=== PATIENT | female | born 1955 | race Caucasian/White ===

== ENCOUNTER 2016-05-31 10:40 | Day surgery (SDC) | payer OTHER ==
[~2016-05-31] VITALS: Ht 165.1 cm; Wt 88.4 kg
[~2016-05-31 10:40] MED LIST: BIFI4CAP PO; CHOL5000 PO; CYCL1DRO OP; ESCI20TA38 PO; KRIL1CAP21 PO; LORA1TAB PO; MULT-1073 PO; OMEP20CA11 PO; PROP120C2 PO; SIMV10TA4 PO; TOPI-31 PO; [UNRECOGNIZED DRUG - OTHER]
[2016-05-31] MEDS ORDERED: Propofol 10,000 mCg/mL 20 mL Inj ONE (10:41)
[2016-05-31] MEDS ORDERED: Lactated Ringer's 1,000 ML IV ONE (10:58)
[2016-05-31 11:02] VITALS: BP 147/81; PULSE 63; RESP 18; O2SAT 97
[2016-05-31] MEDS ORDERED: BUTA1CAP41 PO (11:13)
[2016-05-31] MEDS ORDERED: HYDR-3825 PO (11:13)
[2016-05-31] MEDS ORDERED: MetoCLOpramide 5 mg/mL 2 mL Inj IVPUSH PRN (11:25)
[2016-05-31] MEDS ORDERED: Ondansetron 2 mg/mL 2 mL Inj IVPUSH PRN (11:25)
[2016-05-31] MEDS ORDERED: Lactated Ringer's 1,000 ML IV SCH (11:25)
[2016-05-31 12:04] VITALS: BP 146/67; PULSE 60; RESP 16; O2SAT 93
[2016-05-31 12:14] VITALS: BP 152/80; PULSE 55; RESP 16; O2SAT 94
[2016-05-31 12:24] VITALS: BP 122/63; PULSE 62; RESP 16; O2SAT 96
--- NOTE | 2016-05-31 13:21 | ENDO ---
[address] [address] ENDOSCOPY PROCEDURE PATIENT: RENÉ CLINE : 1955 MR#: [id number] ADMIT: 05/31/2016 JOB ID: [id number] OPERATION: Esophagogastroduodenoscopy with biopsy and polypectomy, and colonoscopy with snare polypectomy. PREOPERATIVE DIAGNOSIS(ES): Gastroesophageal reflux disease and a history of colon polyps. POSTOPERATIVE DIAGNOSIS(ES): 1. An 8 mm polyp seen in the body of the stomach status post hot snare polypectomy. 2. Mild nonerosive gastritis. 3. Small internal hemorrhoids. 4. A 5 mm ascending colon polyp, removed by hot snare polypectomy. ANESTHESIA: Monitored anesthesia care. COMPLICATIONS: None. BLOOD LOSS: Minimal. DESCRIPTION OF PROCEDURE: After the risks and benefits were explained to the patient, informed consent was obtained. After anesthesia was administered, an upper endoscope was inserted into the mouth, intubating the esophagus, stomach, and second portion of duodenum, and the mucosa carefully examined. After the procedure was done, the scope was withdrawn and the procedure terminated. The colonoscope was then inserted from the rectum to the cecum and the mucosa was carefully examined. Prep of the patient was good. After the procedure was done, the scope was withdrawn and the procedure terminated. FINDINGS: Upon inspection of the esophagus, the esophagus was normal, without masses, ulcers, or lesions. The Z-line was located at 40 cm from the incisors. Upon entering the stomach, there was an 8 mm polyp seen with a stalk in the body of the stomach. This was removed by hot snare polypectomy. There was mild nonerosive gastritis that was seen. Retroflexion was normal. Duodenal bulb, 2nd portion. Biopsy taken. Antrum, body of the stomach, and distal esophagus. Upon inspection of the anus, no masses, hemorrhoids, ulcers, or fissures that were seen throughout the entire examination. There was a 5 mm ascending colon polyp removed by hot snare polypectomy. Retroflexion showed small internal hemorrhoids. IMPRESSION: 1. Small internal hemorrhoids. 2. A 5 mm ascending colon polyp, removed by hot snare polypectomy. 3. An 8 mm polyp seen in the body of the stomach, removed by hot snare polypectomy. 4. Mild nonerosive gastritis. RECOMMENDATION: Await pathology results. Repeat colonoscopy in five years for history of colon polyps.
--- NOTE | 2016-05-31 15:41 | PCM.HPANE ---
Patient Data Surgeon Admitting Provider: Attending Provider:Nabil Jara MD Primary Care Physician:Adelaide Morris DO Other Provider:Cristhian Lanier Anesthesia Reason for Visit Phx Colon Polyps, Gerd Ht/WT & BMI Body Mass Index Allergies Coded Allergies: No Known Allergies (Unverified , 05/31/16) Past Anesthesia History Anesthesia History: Denies:: Anesthesia Reactions Diabetes History Hx Diabetes?: No Medications Reported Medications Hydrocodone-Acetaminophen 7.5-325 mg 1 Each Tablet1 Tablet PO Q4H PRN For Pain Ref 0 05/31/16 Butalbital/Acetamin/Caff 50-300-40 mg 1 Each Capsule1 Capsule PO Q4H PRN Headache Ref 0 05/31/16 Omeprazole 20 Mg Capsule.dr20 Mg PO DAILY Ref 0 05/30/16 Cholecalciferol (Vitamin D3) (Vitamin D3)5,000 Unit Capsule5,000 Unit PO DAILY 12/15/15 Topiramate 100 Mg [id number] Mg PO BID Ref 0 12/15/15 Simvastatin 10 Mg Ocnvjd48 Mg PO HS Ref 0 12/15/15 Cyclosporine (Restasis)1 Each Droperette1 Each OP DAILY 12/15/15 Propranolol ER 120 Mg Cap.sa.77b909 Mg PO DAILY 12/15/15 Lorazepam 1 Mg Tablet0.5-1 Mg PO TID PRN For Anxiety Ref 0 12/15/15 Escitalopram Oxalate 20 Mg Jxwoyi17 Mg PO DAILY 30 Days Ref 0 12/15/15 Multivits-Min/FA/Lycopene/Lut (Centrum Silver Tablet)1 Each Tablet1 Each PO DAILY 12/15/15 Discontinued Reported Medications [phrenilin forte] 50/650 No Conflict Check1 Tab Q4H PRN migraine NTE 4 cap/ 24hrs 12/15/15 Krill/Om-3/Dha/Epa/Phospho/Ast (Megared [place]-3 Krill Oil Sfgl)300-90-24 Capsule1 Each PO DAILY 12/15/15 Bifidobacterium Infantis (Align)4 Mg Capsule4 Mg PO DAILY 12/15/15 History History of ENT Problems?: No Hx of Heart Problems?: Yes Cardiovascular History: Positive for:: Hypertension Denies:: AICD Pacemaker Hx of Respiratory Problem?: Yes Respiratory History: Positive for:: Use of C-PAP Machine (AKUA+ ) Denies:: Oxygen Administration Hx Neurologic Problems?: Yes Neurological History: Positive for:: Headaches (migraine hx) Hx of GI Problems?: No Hx of Problems?: Yes Genitourinary History: Positive for:: Kidney Stones (left kidney stone current admission problem) Female Hx: Denies:: Currently (hysterectomy) Hx Musculoskeletal Problems?: Yes Musculoskeletal History: Positive for:: Musculoskeletal Trauma (s/p ACL ) Denies:: Back Injury Hx of Psycho/Social Problems?: Yes Psycho Social History: Positive for:: Hx Depression Hx Surgeries?: Yes (hyst, RSO, appe, thyroid, ACL repair) Hx Any Other Health Problems?: Yes Other History: Positive for:: Thyroid Disease (hx of thyroidectomy) Denies:: Cancer Hx Diabetes: No Have You Smoked inLast 12 mo: No Stop/Bang Risk Assessment Category Category 1A: Patient has history of documented sleep apnea, and HAS NOT received any narcotic, sedative or anesthesia administration during this stay. Category 1B: Patient has history of documented sleep apnea, and HAS received any narcotic , sedative or anesthesia administration during this stay Category 2: Patient has SUSPECTED Obstructive Sleep Apnea, and HAS received any narcotic , sedative or anesthesia administration during this stay. Category 3: Patient has SUSPECTED Obstructive Sleep Apnea and HAS NOT received narcotic, sedative or anesthesia administration during this stay. Category 4: Outpatient in Procedural Areas with known sleep apnea or who screen positive for High Risk via the STOP/BANG questionnaire. Exam Exam General Appearance: Alert, Oriented X3, Cooperative, No Acute Distress HEENT/AIRWAY: MP 2 Lungs: Clear to Auscultation, Normal Air Movement Heart: Exam Unremarkable, Regular Rate/Rhythm, No Murmurs/Rubs/Gallops Plan Impression Patient chart reviewed, patient interviewed and anesthestic plan with risks, benefits, and alternatives discussed, and informed consent obtained. NPO Status: mn ASA Physical Status: ASA2 Mod Systemic Disease Anesthetic Plan: MAC Bene/Risks/Altern/Consents: Yes HP Complete Prior to Induction: Yes Simone Gayle MD May 31, 2016 07:29
--- NOTE | 2016-05-31 15:41 | PCM.ANEP1 ---
Post Anesthesia Phase 1 PACU Phase 1 Assessment Vital Signs Vital Signs Date Time Temp Pulse Resp B/P Pulse Ox O2 Delivery O2 Flow Rate FiO2 05/31/16 12:24 62 16 122/63 96 Room Air 05/31/16 12:14 55 16 152/80 94 Room Air 05/31/16 12:04 36.6 60 16 146/67 93 Room Air 05/31/16 11:02 37.2 63 18 147/81 97 Room Air Anesthetic Administered: MAC Level of Alertness: Awake, talking MATOS's with Equal Strength: Yes Pain: No Nausea or Vomiting: No Oxygen Delivery: Room Air Lungs: Clear to Auscultation, Normal Air Movement Dermatome Level: Full Sensation Simone Gayle MD May 31, 2016 15:41
--- NOTE | 2016-05-31 15:41 | PCM.ANEP2 ---
Post Anesthesia Evaluation ASA/CMS Post Anesthesia VS in Patient's Normal Range?: Yes Resp Stable; Airway Patent?: Yes CV Function & Hydration Stable: Yes Mental Status Recovered?: Yes Pain control Satisfactory?: Yes N/V Control Satisfactory?: Yes Simone Gayle MD May 31, 2016 15:41
--- NOTE | 2016-06-04 11:16 | PATH ---
SURGICAL PATHOLOGY Attending Physician:Nabil Jara MD CASE STATUS: Signed Out PATIENT NAME: RENÉ CLINE PID: [id number] : 1955 DATE COLLECTED:05/31/2016 00:00 SPECIMEN: 1: Gastric, Biopsy 2: Gastric, Biopsy 3: Esophagus, Biopsy 4: Stomach, Polyp, Biopsy 5: Colon, Biopsy CLINICAL HISTORY: 1). ANTRUM BIOPSY 2). GASTRIC BODY 3). DISTAL ESOPHAGUS 4). GASTRIC POLYP X1 5). ASCENDING POLYP X1 FINAL DIAGNOSIS: 1.ANTRUM BIOPSY: MUCOSAL HYPEREMIA WITHOUT ASSOCIATED SIGNIFICANT INFLAMMATION INVOLVING ANTRAL MUCOSA. Negative for evidence of Helicobacter. Negative for intestinal metaplasia. Negative for dysplasia and malignancy. 2.GASTRIC BODY BIOPSY: MILD CHRONIC GASTRITIS INVOLVING FUNDIC MUCOSA. Negative for evidence of Helicobacter. Negative for intestinal metaplasia. Negative for dysplasia and malignancy. 3.DISTAL ESOPHAGUS BIOPSY: SQUAMOUS MUCOSA AND GASTRIC CARDIA-TYPE MUCOSA NEGATIVE FOR SPECIALIZED METAPLASIA OF LORENZO' S-TYPE ESOPHAGUS. Negative for dysplasia and malignancy. Rare eosinophils present within squamous epithelium consistent with changes of chronic reflux. 4.GASTRIC POLYP: HYPERPLASTIC POLYP, NEGATIVE FOR ATYPIA. 5.ASCENDING COLON POLYP: TUBULAR ADENOMA INVOLVING SINGLE BIOPSY FRAGMENT. ICD10 CODE D12.2 GROSS DESCRIPTION: The specimen is received in five formalin filled containers labeled with the patient's name. 1). The specimen is sublabeled "antrum" and consists of 2 portions of tissue which aggregate to 0.3 x 0.3 x 0.2 CM. The specimen is entirely submitted in cassette 1A. 2). The specimen is sublabeled "gastric body" and consists of 2 portions of tissue which aggregate to 0.4 x 0.3 x 0.2 CM. The specimen is entirely submitted in cassette 2A. 3). The specimen is sublabeled "distal esophagus" and consists of 2 portions of tissue which aggregate to 0.3 x 0.3 x 0.2 CM. The specimen is entirely submitted in cassette 3A. 4). The specimen is sublabeled "gastric polyp" and consists of a 0.7 x 0.7 x 0.7 CM portion of tissue. The specimen is bisected and totally submitted in cassette 4A. 5). The specimen is sublabeled "ascending polyp" and consists of 3 portions of tissue which aggregate to 0.4 x 0.4 x 0.3 CM. The specimen is entirely submitted in cassette 5A. 06/01/2016 [facility] MICRO DESCRIPTION: See diagnosis. ICD-9 CODES: CPT CODES: 1: 69535 2: 13989 3: 18198 4: 37997 5: 33922 Electronically Signed Out Jimbo Mclaughlin MD [facility] Pathology [facility] [address], [place] [address] Technical component performed at [facility], [facility] [address], [place], [address]
== END 2016-05-31 23:59 | disposition home or self-care (01) ==
LOC: END 10:40
PROVIDERS: ATTEND Internal Medicine Gastroenterology
DX: Z12.11 Encounter for screening for malignant neoplasm of colon (principal); Z86.010 Personal history of colon polyps; D12.2 Benign neoplasm of ascending colon; K64.8 Other hemorrhoids; K21.9 Gastro-esophageal reflux disease without esophagitis; K31.7 Polyp of stomach and duodenum; K29.50 Unspecified chronic gastritis without bleeding; G47.33 Obstructive sleep apnea (adult) (pediatric); I10 Essential (primary) hypertension; F32.9 Major depressive disorder, single episode, unspecified; G43.009 Migraine without aura, not intractable, without status migrainosus; E78.00 Pure hypercholesterolemia, unspecified; Z87.442 Personal history of urinary calculi
CPT/HCPCS: 43239; 43251; 45385; 88305; J7120

== ENCOUNTER 2016-06-06 08:31 | Day surgery (SDC) | payer OTHER ==
[2016-06-06] VITALS (8 sets, daily range): BP systolic 124–144; BP diastolic 73–84; PULSE 54–61; RESP 12–17; O2SAT 92–97
[~2016-06-06] VITALS: Ht 163.8 cm; Wt 87.0 kg
[~2016-06-06 08:31] MED LIST changes: -BIFI4CAP PO; +BUTA1CAP41 PO; +CeFAZolin Inj 2 GM in IV Premix 1 EACH IV ONE; +HYDR-3825 PO; -KRIL1CAP21 PO; +Lactated Ringer's 1,000 ML IV SCH; -[UNRECOGNIZED DRUG - OTHER]
[2016-06-06] MEDS ORDERED: fentaNYL-PF 50 mCg/mL 2 mL Inj ONE (08:32)
[2016-06-06] MEDS ORDERED: Propofol 10,000 mCg/mL 20 mL Inj ONE (08:32)
[2016-06-06] MEDS ORDERED: Ondansetron 2 mg/mL 2 mL Inj ONE (08:32)
[2016-06-06] MEDS ORDERED: Lactated Ringer's 1,000 ML IV ONE (09:26)
--- NOTE | 2016-06-06 09:45 | DRSVH ---
PROCEDURE: X-RAY KUB ([id number]) INDICATIONS: LEFT URETERAL STONE TECHNIQUE: One view of the abdomen acquired. COMPARISON: [facility], CR, KUB XRAY (1 VIEW ABDOMEN), 05/15/2016, 12:01. FINDINGS: Surgical changes and devices: None. Bowel: Bowel gas pattern is normal. Soft tissues At the expected position of the proximal ureter on the left just beneath the left trans verse process of L3, there is a 6 x 7 mm calcification suspicious for representing proximal ureteral stone and unchanged from prior exam. Bones: No suspicious bony lesions. IMPRESSION: Calcification again seen in the region of the proximal left ureter with no significant ch delaney from prior exam. Dictated by: Ru Diego [facility] Interpreted: Charlie Portillo MD on 06/06/2016 at 9:42 Transcribed by: LEO on 06/06/2016 at 9:44 Approved by: Charlie Portillo M.D. on 06/07/2016 at 13:31
--- NOTE | 2016-06-06 10:31 | PCM.HPANE ---
Patient Data Surgeon Admitting Provider: Attending Provider:Minoo Guevara MD Primary Care Physician:Adelaide Morris DO Other Provider:Cristhian Lanier Anesthesia Reason for Visit Left Ureteral Stone Ht/WT & BMI Height (Feet): 5 Height (Inches): 4.50 Weight (Kilograms): 87 Body Mass Index 32.00 Allergies Coded Allergies: No Known Allergies (Unverified , 05/31/16) Past Anesthesia History Anesthesia History: Denies:: Abnormal Airway, Anesthesia Reactions, Difficult Intubation, Fam Anesthesia Reaction Diabetes History Hx Diabetes?: No MRSA MRSA: No Medications Hypertension Medication: Yes Home Meds Incl Beta Gopi: Yes Date Beta Gopi Taken: Jun 06, 2016 Time Beta Gopi Taken: 0500 Reported Medications Hydrocodone-Acetaminophen 7.5-325 mg 1 Each Tablet1 Tablet PO Q4H PRN For Pain Ref 0 05/31/16 Butalbital/Acetamin/Caff 50-300-40 mg 1 Each Capsule1 Capsule PO Q4H PRN Headache Ref 0 05/31/16 Omeprazole 20 Mg Capsule.dr20 Mg PO DAILY Ref 0 05/30/16 Cholecalciferol (Vitamin D3) (Vitamin D3)5,000 Unit Capsule5,000 Unit PO DAILY 12/15/15 Topiramate 100 Mg Dcaffp071 Mg PO BID Ref 0 12/15/15 Simvastatin 10 Mg Xqbvfv07 Mg PO HS Ref 0 12/15/15 Cyclosporine (Restasis)1 Each Droperette1 Each OP DAILY 12/15/15 Propranolol ER 120 Mg Cap.sa.07d271 Mg PO DAILY 12/15/15 Lorazepam 1 Mg Tablet0.5-1 Mg PO TID PRN For Anxiety Ref 0 12/15/15 Escitalopram Oxalate 20 Mg Qtxqql17 Mg PO DAILY 30 Days Ref 0 12/15/15 Multivits-Min/FA/Lycopene/Lut (Centrum Silver Tablet)1 Each Tablet1 Each PO DAILY 12/15/15 Discontinued Reported Medications [phrenilin forte] 50/650 No Conflict Check1 Tab Q4H PRN migraine NTE 4 cap/ 24hrs 12/15/15 Krill/Om-3/Dha/Epa/Phospho/Ast (Megared [place]-3 Krill Oil Sfgl)300-90-24 Capsule1 Each PO DAILY 12/15/15 Bifidobacterium Infantis (Align)4 Mg Capsule4 Mg PO DAILY 12/15/15 History History of ENT Problems?: Yes HEENT History: Positive for:: TMJ (used to wear nightguard - no longer ) Denies:: Abnormal Airway Cataracts Difficult Intubation Dysphagia Glaucoma Hearing Problem Sinus Problem Hx of Heart Problems?: Yes Cardiovascular History: Positive for:: Hypertension Denies:: AICD Abdominal Aortic Aneurism Cardiac Surgery Chest Pain Congestive Heart Failure Coronary Artery Disease Irregular Heartbeat Pacemaker Rheumatic Fever Hx of Respiratory Problem?: Yes Respiratory History: Positive for:: Use of C-PAP Machine Denies:: Asthma COPD Emphysema Oxygen Administration Pneumonia Tuberculosis Use of Inhalers / NEBS Hx Neurologic Problems?: Yes Neurological History: Positive for:: Headaches (migraine hx chronic) Denies:: Alzheimer's Disease CVA Dementia Dizziness Multiple Sclerosis Parkinson's Disease Seizures TIA Hx of GI Problems?: Yes Gastrointestinal History: Positive for:: Gastroesphageal Reflux Heartburn Denies:: Cirrhosis Gall Bladder Disease Gastrointestinal Bleeding Hepatitis Hiatal Hernia Rectal Bleeding Hx of Problems?: Yes Genitourinary History: Positive for:: Kidney Stones (left kidney stone current admission problem) Denies:: Urinary Tract Infection Female Hx: Denies:: Currently (hysterectomy) Problems with Breasts? Skin History: Denies:: History Skin Disorders? Pressure Ulcers Hx Musculoskeletal Problems?: Yes Musculoskeletal History: Positive for:: Musculoskeletal Trauma (s/p ACL ) Denies:: Back Injury Degenerative Joint Fibromyalgia Joint Replacement Myasthenia Gravis Osteoarthritis Hx of Psycho/Social Problems?: Yes Psycho Social History: Positive for:: Anxiety Hx Depression Hx Surgeries?: Yes (hyst, RSO, appe, thyroid, ACL repair) Hx Any Other Health Problems?: Yes Other History: Positive for:: Thyroid Disease (hx of thyroidectomy) Denies:: Cancer History Blood Transfusions: Positive for:: Accept Blood Products? Denies:: Blood Transfusions Hx Diabetes: No Hx Alcohol Use: NoHx Substance Use: No Smoking Status: Never Smoker Have You Smoked inLast 12 mo: No Stop/Bang B- Body Mass Index > 35 kg/m2: No A- Age over 50: Yes N- Neck Large Circumference: Yes G- Gender Male: No AKUA Risk Assessment: Low Risk, <3 Yes Risk Assessment Category Category 1A: Patient has history of documented sleep apnea, and HAS NOT received any narcotic, sedative or anesthesia administration during this stay. Category 1B: Patient has history of documented sleep apnea, and HAS received any narcotic , sedative or anesthesia administration during this stay Category 2: Patient has SUSPECTED Obstructive Sleep Apnea, and HAS received any narcotic , sedative or anesthesia administration during this stay. Category 3: Patient has SUSPECTED Obstructive Sleep Apnea and HAS NOT received narcotic, sedative or anesthesia administration during this stay. Category 4: Outpatient in Procedural Areas with known sleep apnea or who screen positive for High Risk via the STOP/BANG questionnaire. Exam Exam Vital Signs Vital Signs Date Time Temp Pulse Resp B/P Pulse Ox O2 Delivery O2 Flow Rate FiO2 06/06/16 09:22 36.6 60 14 136/84 94 Room Air General Appearance: Alert, Oriented X3, Cooperative, No Acute Distress HEENT/AIRWAY: MP 2 Lungs: Clear to Auscultation, Normal Air Movement Heart: Exam Unremarkable, Regular Rate/Rhythm, No Murmurs/Rubs/Gallops Meds/Labs/Diagnostics Admission Meds Current Medications Lactated Ringer's (Lr) 1,000 ml @ ud STK-MED ONCE IV Last administered on t 09:26; Start 06/06/16 at 09:26; Stop 06/06/16 at 09:27; Status DC Plan Impression Patient chart reviewed, patient interviewed and anesthestic plan with risks, benefits, and alternatives discussed, and informed consent obtained. NPO Status: comfirmed before mn ASA Physical Status: ASA2 Mod Systemic Disease Anesthetic Plan: GA Bene/Risks/Altern/Consents: Yes HP Complete Prior to Induction: Yes Pernell Moyer MD Jun 06, 2016 10:31
[2016-06-06] MEDS ORDERED: Dexamethasone 4 mg/mL Inj IVPUSH PRN (10:50)
[2016-06-06] MEDS ORDERED: Labetalol 5 mg/mL 4 mL Inj IV PRN (10:50)
[2016-06-06] MEDS ORDERED: Ondansetron 2 mg/mL 2 mL Inj IVPUSH PRN (10:50)
[2016-06-06] MEDS ORDERED: fentaNYL-PF 50 mCg/mL 2 mL Inj IVPUSH PRN (10:50)
[2016-06-06] MEDS ORDERED: HYDROmorphone 1 mg/mL Inj IVPUSH PRN (10:50)
[2016-06-06] MEDS ORDERED: Lactated Ringer's 500 ML IV PRN (10:50)
[2016-06-06] MEDS ORDERED: Lactated Ringer's 1,000 ML IV SCH (10:50)
[2016-06-06] MEDS ORDERED: hydrALAZINE 20 mg/mL Inj IVPUSH PRN (10:50)
[2016-06-06] MEDS ORDERED: Phenylephrine 10,000 mCg/mL Inj IVPUSH PRN (10:50)
[2016-06-06] MEDS ORDERED: EPHEDrine Sulfate 50 mg/mL Inj IVPUSH PRN (10:50)
[2016-06-06] MEDS ORDERED: Atropine 0.4 mg/mL Inj IVPUSH PRN (10:50)
[2016-06-06] MEDS ORDERED: HYDROcodone-APAP 5-325 mg Tablet PO PRN (10:55)
--- NOTE | 2016-06-06 11:35 | PCM.ANEP1 ---
Post Anesthesia Phase 1 PACU Phase 1 Assessment Vital Signs Vital Signs Date Time Temp Pulse Resp B/P Pulse Ox O2 Delivery O2 Flow Rate FiO2 06/06/16 09:22 36.6 60 14 136/84 94 Room Air Level of Alertness: Awake, talking MATOS's with Equal Strength: Yes Pain: No Nausea or Vomiting: No Oxygen Delivery: Simple Mask Lungs: Clear to Auscultation, Normal Air Movement Dermatome Level: Full Sensation Pernell Moyer MD Jun 06, 2016 11:35
--- NOTE | 2016-06-06 11:36 | PCM.ANEP2 ---
Post Anesthesia Evaluation ASA/CMS Post Anesthesia VS in Patient's Normal Range?: Yes Resp Stable; Airway Patent?: Yes CV Function & Hydration Stable: Yes Mental Status Recovered?: Yes Pain control Satisfactory?: Yes N/V Control Satisfactory?: Yes Pernell Moyer MD Jun 06, 2016 11:36
--- NOTE | 2016-06-06 11:58 | OP ---
[address] [address] OPERATIVE REPORT PATIENT: RENÉ CLINE : 1955 MR#: [id number] ADMIT: 06/06/2016 JOB ID: [id number] DATE OF SURGERY: 06/06/2016 PREOPERATIVE DIAGNOSIS(ES): Left ureteral stone. POSTOPERATIVE DIAGNOSIS(ES): Left ureteral stone. PROCEDURE PERFORMED: Left extracorporeal shockwave lithotripsy. SURGEON: Minoo Guevara MD. ASSET ACCOUNTANT: None. FINDINGS: Left mid ureteral stone submitted to 2000 shocks with good hazing. ANESTHESIA: General. ESTIMATED BLOOD LOSS: None. SPECIMENS: None. CONDITION: Stable. COMPLICATIONS: None. INDICATION FOR PROCEDURE: The patient is a 60-year-old woman with a left ureteral stone who wishes to undergo shockwave lithotripsy. DESCRIPTION OF THE PROCEDURE: After informed consent was obtained, the patient was taken to the operating room. A time-out was performed identifying correct patient, surgical site and procedure. General anesthesia was smoothly induced. She was given intravenous antibiotics just prior to the start of the procedure. She was placed over the lithotripter device and the stone isolated within the cross hairs. Shocks were delivered to the stone with excellent hazing. A total of 2000 shocks were given at a gradually increased power of 9. She appeared to tolerate the procedure well without apparent complications. She was reversed from general anesthesia and taken to the PACU in good and stable condition. RHONDA
== END 2016-06-06 23:59 | disposition home or self-care (01) ==
LOC: SAS 08:31
PROVIDERS: ATTEND Urology
DX: N20.1 Calculus of ureter (principal); I10 Essential (primary) hypertension; G47.33 Obstructive sleep apnea (adult) (pediatric); K21.9 Gastro-esophageal reflux disease without esophagitis; F32.9 Major depressive disorder, single episode, unspecified; F41.9 Anxiety disorder, unspecified
CPT/HCPCS: 50590; 74000; J0690; J2250; J2405; J3010; J7120